=== PATIENT | female | born 1995 | race Caucasian/White ===

== ENCOUNTER 2018-01-12 09:57 | Emergency (ER) | payer BC, MEDICAID | END 2018-01-12 10:54 | disposition home or self-care (01) | LOC: SCSER 09:57 | DX: L25.8 Unspecified contact dermatitis due to other agents (principal); B86 Scabies; F41.9 Anxiety disorder, unspecified; F90.9 Attention-deficit hyperactivity disorder, unspecified type; Z79.899 Other long term (current) drug therapy | CPT/HCPCS: 99283 ==

== ENCOUNTER 2019-02-17 14:51 | Observation (INO) | payer BC, OTHER ==
[2019-02-17 15:36] LABS: #Basophils 0.1 thou/uL (0.0-0.2); #Lymphocytes 1.7 thou/uL (1.20-3.40); #Monocytes 0.6 thou/uL (0.11-0.59); #Neutrophils 8.7 thou/uL (1.40-6.50); %Basophils 0.5 % (0.0-1.0); %Eosinophils 0.3 % (0.0-10.0); %Lymphocytes 15.1 % (21.0-51.0); %Monocytes 5.1 % (0.0-10.0); %Neutrophils 79.1 % (42.0-75.0); Mean Corpuscular HGB CONC 33.3 g/dL (32.0-36.0); Mean Corpuscular Hemoglobin 29.6 pg (27.0-31.0); Mean Platelet Volume 7.3 fL (7.4-10.4); Platelet Count 252 thou/uL (130-400); Red Blood Cell (RBC) Count 4.72 mill/uL (4.20-5.40)
[2019-02-17 15:56] LABS: ALT (SGPT) 24 U/L (8-55); AST (SGOT) 28 U/L (5-34); Acetaminophen Less than 6.0 mcg/mL (10.0-30.0); Albumin 4.5 g/dL (3.5-5.0); Alcohol Less than 10 mg/dL (Less than 10); Alkaline Phosphatase 149 U/L (40-150); Anion Gap 16 mmol/L (10-20); BUN (Urea Nitrogen) 11 mg/dL (7.0-18.7); Bilirubin, Total 0.2 mg/dL (0.2-1.2); Calc. Creatinine Clearance 0 mL/min (70-130); Calcium 9.7 mg/dL (7.8-10.44); Carbon Dioxide 22 mmol/L (22-29); Chloride 105 mmol/L (98-107); Estimated GFR-MDRD Greater than 90; Globulin 3.2 g/dL (2.4-3.5); Glucose 91 mg/dL (70-105); Potassium 3.5 mmol/L (3.5-5.1); Protein, Total 7.7 g/dL (6.0-8.3); Salicylate Less than 8.0 mg/dL (15.0-30.0); Sodium 139 mmol/L (136-145)
[2019-02-17 16:15] LABS: Bilirubin Negative (Negative); Blood, Urine Negative (Negative); Clarity CLEAR (Clear); Glucose, Urine (Dipstick) Negative (Negative); Leukocyte Negative (Negative); Nitrite Negative (Negative); Protein, Urine (Dipstick) Negative (Neg-Trace); Specific Gravity, Urine 1.028 (1.002-1.036); Urobilinogen 0.2 mg/dL (0.2-1.0); pH, Urine 5.5 (5.0-9.0)
[2019-02-17 16:24] LABS: Amphetamine Detected (NotDetected); Barbiturates Screen Not Detected (NotDetected); Benzodiazepine Screen Not Detected (NotDetected); Cocaine Metabolite Screen Not Detected (NotDetected); Medtox Control Line Valid? VALID (VALID); Medtox Reader # READER 1; Methadone Not Detected (NotDetected); Methamphetamine Not Detected (NotDetected); Opiate Screen Not Detected (NotDetected); Oxycodone Screen Not Detected (NotDetected); Phencyclidine (PCP) Not Detected (NotDetected); THC/Cannabinoid Screen Not Detected (NotDetected); Tricyclic Screen Not Detected (NotDetected)
[2019-02-17 16:50] LABS: Pregnancy Test - Urine (BHCG) Negative (Negative); Pregu Control Background? CLEAR/WHITE (CLR/WHITE); Pregu Control Bar Appear? YES (CONTROL BAR); Specific Gravity 1.028 (1.002-1.036)
[2019-02-17] MEDS ORDERED: Acetaminophen 325 MG TAB ONE (19:58)
[2019-02-17] MEDS ORDERED: Ondansetron ODT 4 MG TAB PO PRN (20:15)
[2019-02-17] MEDS ORDERED: Ondansetron PF 4 MG/2 ML Vial IVP PRN (20:15)
[2019-02-17 21:11] VITALS: BMI 35.7
[2019-02-17] MEDS: Sodium Chloride 0.9% 1,000 ML IV SCH (21:46)
[2019-02-17] MEDS ORDERED: Acetaminophen 325 MG TAB PO PRN (23:30)
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
[2019-02-18 05:56] LABS: #Lymphocytes 2.2 thou/uL (1.20-3.40); #Monocytes 0.6 thou/uL (0.11-0.59); %Basophils 0.3 % (0.0-1.0); %Eosinophils 0.7 % (0.0-10.0); %Lymphocytes 32.5 % (21.0-51.0); %Monocytes 8.6 % (0.0-10.0); %Neutrophils 57.9 % (42.0-75.0); Hemoglobin 13.2 g/dL (12.0-16.0); Mean Corpuscular HGB CONC 33.4 g/dL (32.0-36.0); Mean Corpuscular Hemoglobin 29.4 pg (27.0-31.0); Mean Corpuscular Volume 88.1 fL (78.0-98.0); Mean Platelet Volume 7.3 fL (7.4-10.4); Platelet Count 262 thou/uL (130-400); RBC Distribution Width 11.8 % (11.5-14.5); Red Blood Cell (RBC) Count 4.48 mill/uL (4.20-5.40); White Blood Cell (WBC) Count 6.9 thou/uL (4.8-10.8)
[2019-02-18 06:10] LABS: Anion Gap 11 mmol/L (10-20); BUN (Urea Nitrogen) 7 mg/dL (7.0-18.7); CK (CPK) 205 U/L (29-168); Calc. Creatinine Clearance 192 mL/min (70-130); Calcium 9.2 mg/dL (7.8-10.44); Carbon Dioxide 25 mmol/L (22-29); Chloride 106 mmol/L (98-107); Estimated GFR-MDRD Greater than 90; Glucose 84 mg/dL (70-105); Magnesium 1.8 mg/dL (1.6-2.6); Potassium 3.4 mmol/L (3.5-5.1); Sodium 139 mmol/L (136-145)
[2019-02-18] MEDS ORDERED: Potassium Chloride 20 MEQ TAB PO SCH (08:00)
[2019-02-18] MEDS: Sodium Chloride 0.9% 1,000 ML IV SCH (09:31)
--- NOTE | 2019-02-18 09:59 | PDOC.PN ---
- Subjective Encounter Start Date: 02/18/19 Encounter Start Time: 10:00 Subjective: Patient is resting in bed with a sitter -: Denies c/o this morning, Reports difficulty sleeping but this is not new -: Denies chest pain, palpations - Objective Resuscitation Status - Order Detail: 02/17/19 20:15 Resuscitation Status Routine Co-Sign Provider: Resuscitation Status: FULL: Full Resuscitation Vital Signs & Weight: Vital Signs (12 hours) Temp Pulse Resp BP BP Pulse Ox 02/18/19 08:26 97.7 F 99 18 117/71 100 02/18/19 03:15 97.9 F 92 16 130/74 100 Weight Weight 97.386 kg I&O: 02/17/19 02/18/19 02/19/19 06:59 06:59 06:59 Intake Total 950 158 Output Total 450 Balance 500 158 Result Diagrams: 02/18/19 05:31 02/18/19 05:31 Phys Exam - Physical Examination HEENT: PERRLA, moist MMs Neck: no nodes, no JVD, full ROM Respiratory: clear to auscultation bilateral Cardiovascular: RRR Gastrointestinal: soft, non-tender, positive bowel sounds Musculoskeletal: no edema, pulses present Neurological: non-focal, normal sensation, moves all 4 limbs Lymphatic: no nodes Psychiatric: normal affect, A&O x 3 Skin: no rash Dx/Plan (1) Intentional amphetamine overdose Code(s): T43.622A - POISONING BY AMPHETAMINES, INTENTIONAL SELF-HARM, INIT Status: Acute (2) Hypokalemia Code(s): E87.6 - HYPOKALEMIA Status: Acute (3) Trouble in sleeping Code(s): G47.9 - SLEEP DISORDER, UNSPECIFIED Status: Chronic - Plan Patient is medically cleared, [facility] has been consulted -: Patient is agreeable to plan. -: Potassium supplement with K 3.4, will recheck * .
[2019-02-18 13:52] VITALS: BP 130/61; TEMP 98.1
--- NOTE | 2019-02-18 19:30 | DIS ---
DATE OF ADMISSION: 02/17/2019 DATE OF DISCHARGE: 02/18/2019 PRIMARY CARE PHYSICIAN: Dr. Villatoro. HOSPITAL COURSE: Ms. Padilla is a 23-year-old female who presented to the emergency room at [facility] for intentional ingestion of all of her Flexeril and Vyvanse. The patient reports that she had had a particularly bad day at work, left work prior to the shift being over, went home and took all the medications that she could find. On evaluation in the ER, Poison Control was contacted, directed for the patient to be on fluids, monitor for tachycardia, increased temp, and monitor her magnesium level and CK level. The patient reports a long-standing history of depression which started around the age of 15 and got worse 3 years ago after her mom and step-dad . The patient reports that she is from [place] and moved here 2 years ago to be closer to her dad. The patient's mom is currently at bedside. The patient was medically cleared. [facility] was consulted. They screened the patient and suggested a safety plan with close followup with resource team tomorrow with [facility]. The patient and her mom who said that she would be staying in town for the next couple of weeks was agreeable to plan and the patient was subsequently discharged home. DISCHARGE DIAGNOSES: 1. Intentional overdose. 2. Depression. 3. Hypokalemia. REVIEW OF SYSTEMS: The patient denies any complaints, was examined prior to discharge, had a normal affect. Denied any active suicide ideations. Denies any chest pain, shortness of breath, abdominal pain, nausea, vomiting. All other systems reviewed and are negative unless mentioned in the hospital course. PHYSICAL EXAMINATION: VITAL SIGNS: Temperature is 98.1, pulse is 86, respirations 17, pO2 sats are 100% on room air, blood pressure is 130/61. CONSTITUTIONAL: The patient appears in no acute distress, is nontoxic appearing. HEENT: Head is atraumatic and normocephalic. Eyes, pupils are equally round and reactive to light. Eyelids are normal to inspection. ENT: Mouth exam is normal. Mucous membranes are moist. NECK: Normal range of motion. Trachea is midline. RESPIRATORY: Chest breath sounds are clear. No signs of respiratory distress. CARDIOVASCULAR: Regular heart rate and rhythm. Heart sounds are normal. ABDOMEN: Nontender. Bowel sounds are heard. BACK: Normal inspection. Normal range of motion. No tenderness. EXTREMITIES: Upper extremities, normal inspection, normal range of motion. Motor strength is normal. Radial pulses are normal. Lower extremities, normal range of motion. Motor strength is normal. Sensation intact. Pedal pulses are equal bilaterally. NEURO: The patient is oriented to person, place, and time. Speech is normal. No focal motor or sensory deficits. SKIN: Warm and dry. Normal in color. PSYCH: Has a normal affect. LAB VALUES: White blood cell count is 6.9, hemoglobin is 13.2, hematocrit is 39.5, and platelet count is 262. Sodium is 139, potassium is 3.4, chloride is 106, carbon dioxide is 25, gap is 11, BUN is 7, creatinine is 0.7, estimated GFR is greater than 90, glucose is 84, calcium is 9.2, magnesium is 1.8. TSH is 0.1115, free T4 is 0.86. CK is 205. ALLERGIES: NONE. HOME MEDICATIONS: We will continue Prozac 20 mg p.o. daily. We will add potassium chloride 40 mEq p.o. q.a.m. x3 days. We discharged the patient's Vyvanse and Flexeril. DISCHARGE CONDITION: Stable. DISCHARGE DISPOSITION: The patient discharged home with safety plan. DISCHARGE INSTRUCTIONS: The patient should follow up with Dr. Villatoro within the next week. Follow up with [facility] as scheduled tomorrow. Job ID: [id number]
== END 2019-02-18 15:07 | disposition home or self-care (01) ==
LOC: ERS 14:51 → 2NO 20:25
PROVIDERS: ADMIT Internal Medicine; ATTEND Internal Medicine
DX: T43.622A Poisoning by amphetamines, intentional self-harm, initial encounter (principal); T48.1X2A Poisoning by skeletal muscle relaxants [neuromuscular blocking agents], intentional self-harm, initial encounter; F32.9 Major depressive disorder, single episode, unspecified; F41.8 Other specified anxiety disorders; F90.9 Attention-deficit hyperactivity disorder, unspecified type; E87.6 Hypokalemia; M41.9 Scoliosis, unspecified; Z79.899 Other long term (current) drug therapy
CPT/HCPCS: 36415; 80048; 80053; 80306; 80307; 81003; 81025; 82550; 83735; 84439; 84443; 85025; 93005; 96360; 96361; G0378